=== PATIENT | male | born 1995 | race Caucasian/White ===

== ENCOUNTER 2025-08-23 20:44 | Inpatient (IN) ==
[2025-08-23] MEDS: LORazepam 1 MG/1 ML SYR ED Inj Use IV STA ×2 (21:30→21:41)
[2025-08-23 22:04] LABS: Acetaminophen < 3 ug/ml (10-30); Salicylate < 3.0 mg/dl (3.0-30)
[2025-08-23 22:05] LABS: Albumin Level 5.1 gm/dl (3.4-5.0); Anion Gap 27.0 (3-11); Bilirubin,Total 1.1 mg/dl (0.2-1.0); Calcium 10.5 mg/dl (8.6-10.3); Carbon Dioxide 17.0 mmol/L (21-32); Chloride 94.0 mmol/L (98-107); Potassium 3.5 mmol/L (3.5-5.1); Sodium 138.0 mmol/L (136-145)
[2025-08-23 22:11] LABS: Alanine Aminotransferase 54.0 U/L (7-52); Alkaline Phosphatase 76.0 U/L (34-104); Blood Urea Nitrogen 5.0 mg/dl (6-23); Creatinine Clr Calc Pharmacy 143.1 ml/min; Glucose 89.0 mg/dl (70-99(Fasting)); Total Protein 8.2 gm/dl (6.0-8.3)
[2025-08-23 22:25] LABS: Hematocrit (blood only) 46.0 % (42.0-52.0); Hemoglobin 16.4 g/dL (14.0-18.0); Immature Granulocytes # (auto) 0.02 K/uL (0.01-0.20); Immature Granulocytes % (auto) 0.4 %; Mean Corpuscular Hemoglobin 33.1 pg (25.0-34.0); Mean Corpuscular Volume 92.7 fL (80.0-100.0); Platelet Count 109 K/uL (130-400); RDW Standard Deviation 41.6 fL (36.4-46.3); Red Blood Count 4.96 M/uL (4.70-6.10); White Blood Count 4.73 K/ul (4.8-10.8)
--- NOTE | 2025-08-23 22:43 | CT Scan Report ---
Exam(s): CT HEAD Without Contrast EXAM: CT Head Without Intravenous Contrast CLINICAL HISTORY: Reason for exam: trauma. OTHER: Other Notes: Patient brought to ED via ems for a gorund level fall while intoxicated. Patient states he remembers the fall and did not loose conciousness but is unable to give a clear story of where the fall happened or story. TECHNIQUE: Axial computed tomography images of the head/brain without intravenous contrast. CTDI is 38.55 mGy and DLP is 1307.22 mGy-cm. Automated exposure control was utilized for the study. A dose lowering technique was utilized adhering to the principles of ALARA. COMPARISON: No relevant prior studies available. FINDINGS: Brain: Age-related parenchymal volume loss. Scattered white matter hypodensities, most likely mild chronic small vessel ischemic change. Tilley-white matter differentiation maintained. No parenchymal edema. No acute intracranial hemorrhage or abnormal extra-axial collection. No mass effect of midline shift. Ventricles: No hydrocephalus. Bones/joints: No acute fracture. Soft tissues: Lateral right frontal scalp swelling. Vasculature: Intracranial atherosclerosis. Sinuses: Unremarkable as visualized. Mastoid air cells: No significant mastoid effusion. IMPRESSION: 1. Lateral right frontal scalp swelling. 2. No acute intracranial process. Electronically signed by: Roni Holliday M.D. 08/23/25 22:42 PM
--- NOTE | 2025-08-23 22:45 | CT Scan Report ---
Exam(s): CT FACIAL Without Contrast EXAM: CT Maxillofacial Without Intravenous Contrast CLINICAL HISTORY: Reason for exam: trauma. OTHER: Other Notes: Patient brought to ED via ems for a gorund level fall while intoxicated. Patient states he remembers the fall and did not loose conciousness but is unable to give a clear story of where the fall happened or story. TECHNIQUE: Axial computed tomography images of the face without intravenous contrast. CTDI is 38.55 mGy and DLP is 1307.22 mGy-cm. Automated exposure control was utilized for the study. A dose lowering technique was utilized adhering to the principles of ALARA. COMPARISON: No relevant prior studies available. FINDINGS: Bones/joints: Acute nondisplaced fracture right frontal process of the maxilla (series 7, image 287). No nasal bone, orbital wall, zygomatic arch, pterygoid plate, or mandible fracture. Temporomandibular joints are normally aligned. Soft tissues: Right-sided nasal soft tissue swelling, right supraorbital soft tissue swelling, and right lateral frontal scalp swelling. Orbits: Ocular globes are intact. No retrobulbar abnormalities. Sinuses: No significant sinus disease. IMPRESSION: 1. Acute nondisplaced fracture right frontal process of the maxilla (series 7, image 287). 2. Right-sided nasal soft tissue swelling, right supraorbital soft tissue swelling, and right lateral frontal scalp swelling. Electronically signed by: Roni Holliday M.D. 08/23/25 22:44 PM
--- NOTE | 2025-08-23 22:46 | CT Scan Report ---
Exam(s): CT C SPINE EXAM: CT Cervical Spine Without Intravenous Contrast CLINICAL HISTORY: Reason for exam: trauma. OTHER: Other Notes: Patient brought to ED via ems for a gorund level fall while intoxicated. Patient states he remembers the fall and did not loose conciousness but is unable to give a clear story of where the fall happened or story. TECHNIQUE: Axial computed tomography images of the cervical spine without intravenous contrast. CTDI is 38.55 mGy and DLP is 1307.22 mGy-cm. Automated exposure control was utilized for the study. A dose lowering technique was utilized adhering to the principles of ALARA. COMPARISON: No relevant prior studies available. FINDINGS: Vertebrae: Straightening of the cervical spine. No acute fracture or subluxation. Discs/spinal canal/neural foramina: Unremarkable. No significant spinal canal stenosis. Soft tissues: Unremarkable. IMPRESSION: Straightening of the cervical spine. No acute fracture or subluxation. Electronically signed by: Roni Holliday M.D. 08/23/25 22:45 PM
[2025-08-23 22:54] LABS: Lipase 49.0 U/L (11-82)
[2025-08-23] MEDS: STAT IV/IM STA (22:56)
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
[2025-08-23] MEDS ORDERED: LORazepam Inj 1 MG in SYRINGE 0.5 ML IV PRN (23:14)
[2025-08-23 23:18] LABS: Thyroid Stimulating Hormone 5.123 uIu/ml (0.300-4.500)
[2025-08-23] MEDS: LIDOCAINE 2%/EPINEPHRINE 1:100,000 20ML INFIL ONE (23:28)
--- NOTE | 2025-08-23 23:31 | Emergency Department Note ---
History of Present Illness General Chief complaint: Alcohol Intoxication Stated complaint: INJURY ALERT, ALCOHOL INTOX Time Seen by Provider: 08/23/25 21:08 History of Present Illness Provider complaint: Fall head injury Onset (ago): hour(s) 2 29-year-old alcoholic male presents emergency department for fall. Reportedly the patient was getting out of the shower after drinking alcohol today and fell and hit his head. Reportedly there was loss of consciousness. Patient states he drank 5-10 beers today whereas he usually drinks 20 beers a day. Home Medications Medication Instructions Recorded Confirmed Type multivitamin 1 tab PO DAILY 08/23/25 08/23/25 History riboflavin (vitamin B2) 100 mg 100 mg PO DAILY 08/23/25 08/23/25 History tablet (Vitamin B-2) Allergies Allergy/AdvReac Type Severity Reaction Status Date / Time No Known Allergies Allergy Unknown Verified 08/23/25 23:45 Past Med/Surg History Problem List (Updated 08/23/25 @ 23:46 by Adrián Pena MD) Depression (Acute) Face lacerations (Acute) CHI (closed head injury) (Acute) Alcohol withdrawal syndrome (Acute) Alcohol withdrawal seizure (Acute) No significant past surgical history Alcoholism (Acute) No significant medical problems Alcoholic intoxication (Acute) Social History (Updated 08/23/25 @ 23:31 by Adrián Pena MD) Smoking Status: Current every day smoker Tobacco Type: Cigarettes Hx Alcohol Use: Yes Alcohol type: beer Alcohol Intake Frequency Comment: Daily, 20 beers daily Hx Substance Use: Yes (Pt abused Xanax) Preferred Language: Ukrainian Feels Safe at Home: Yes Physical Exam Vital Signs Vital Signs - 24 hr 08/23/25 21:01 08/23/25 21:01 08/23/25 21:01 Temperature 36.7 C 36.7 C Temperature Source Oral Oral Pulse Rate 97 H Pulse Rate [Right Finger] 89 Pulse Rhythm Regular Pulse Rhythm [Right Finger] Regular Pulse Strength Normal Pulse Strength [Right Finger] Normal Respiratory Rate 18 17 Respiratory Effort / Characteristics Non-Labored Spontaneous Non-Labored Spontaneous Respiratory Depth Normal Normal Respiratory Pattern Regular Blood Pressure 143/89 H Blood Pressure [Right Arm] 143/89 H Blood Pressure Mean 107 Blood Pressure Mean [Right Arm] 107 Blood Pressure Position Lying Blood Pressure Position [Right Arm] Lying Pulse Oximetry 96 94 Oxygen Delivery Method Room Air Room Air Room Air Sepsis Recent Fever Within 48 Hours No Sepsis New/Unexplained Change in Mental Status N/A Sepsis Action Taken by Nursing No Action Required 08/23/25 21:25 08/23/25 21:25 08/23/25 21:30 Temperature Temperature Source Pulse Rate 92 H 100 H Pulse Rate [Right Finger] 88 Pulse Rhythm Regular Pulse Rhythm [Right Finger] Regular Pulse Strength Pulse Strength [Right Finger] Normal Respiratory Rate 17 17 Respiratory Effort / Characteristics Non-Labored Spontaneous Respiratory Depth Normal Respiratory Pattern Regular Blood Pressure Blood Pressure [Right Arm] 132/89 Blood Pressure Mean Blood Pressure Mean [Right Arm] 103 Blood Pressure Position Blood Pressure Position [Right Arm] Lying Pulse Oximetry 95 98 Oxygen Delivery Method Room Air Room Air Sepsis Recent Fever Within 48 Hours Sepsis New/Unexplained Change in Mental Status Sepsis Action Taken by Nursing 08/23/25 22:04 08/23/25 23:00 08/23/25 23:13 Temperature Temperature Source Pulse Rate 95 H Pulse Rate [Right Finger] 91 H Pulse Rhythm Pulse Rhythm [Right Finger] Regular Regular Pulse Strength Pulse Strength [Right Finger] Normal Normal Respiratory Rate 21 19 Respiratory Effort / Characteristics Non-Labored Spontaneous Respiratory Depth Normal Respiratory Pattern Regular Blood Pressure 119/67 Blood Pressure [Right Arm] 128/88 Blood Pressure Mean Blood Pressure Mean [Right Arm] 101 Blood Pressure Position Blood Pressure Position [Right Arm] Lying Pulse Oximetry 92 Oxygen Delivery Method Room Air Sepsis Recent Fever Within 48 Hours Sepsis New/Unexplained Change in Mental Status Sepsis Action Taken by Nursing Physical Exam GENERAL: Patient is very tremulous. HENT: Exam performed. - Head: 2 cm laceration under the right eyebrow. - Right Ear: External ear normal. No mastoid erythema - Left Ear: External ear normal. No mastoid erythema - Mouth/Throat: The oropharynx is clear and moist. No trismus in the jaw. No dental abscesses or uvula swelling. No oropharyngeal exudate or tonsillar abscesses. EYES: Conjunctivae and EOM are normal. Pupils are equal, round, and reactive to light. Right eye exhibits no discharge. Left eye exhibits no discharge. No scleral icterus. NECK: Normal range of motion. Neck supple. No JVD present. No spinous process tenderness present. CV: Normal rate, regular rhythm, normal heart sounds and intact distal pulses. There is no peripheral edema. Palpable radial pulses bue. PULM/CHEST: Effort normal and breath sounds normal. No respiratory distress. No stridor. He has no wheezes. He has no rales. ABD: The abdomen is soft. There is no tenderness. There is no rebound, no guarding. MUSC/SKEL: Normal range of motion. There is no peripheral edema, tenderness or deformity. NEURO: Motor and sensation grossly intact. Procedures Laceration Laceration 1: Site: face Size (cm): 2 Description: linear Local Anesthetic: lidocaine 1% and with epi Amount of anesthesia used (mL): 4 Pre-repair: wound explored and irrigated extensively Skin layer closed with: vicryl Size (cm): 6-0 Number of sutures: 3 Technique: simple, interrupted Course Course 2108: The patient was evaluated in room B2. A complete history and physical exam was performed Cardiac monitoring: An order was placed for continuous cardiac monitoring. The monitor shows a rate of 90 with sinus rhythm interpreted by me Patient very tremulous. Patient will be given Ativan 1 mg. 2140: Called to bedside by nursing as patient was having seizure. Patient with tonic-clonic jerking and foaming at the mouth. Patient bit his tongue. Ativan 2 mg IV ordered for the patient. Patient will be started on phenobarb protocol for alcohol withdrawal. 2340: Vital signs stable status post being started on the phenobarbital protocol. Labs are significant for an AST of 80 and ALT of 54. Alcohol is only 21. Imaging shows nondisplaced fracture of the right frontal process of the maxilla. Otherwise no traumatic injuries. Patient's laceration was repaired. [facility]. Administered Medications Discontinued Medications Phenobarbital Sodium 325 mg/ (Sodium Chloride) 52.5 mls @ 315 mls/hr IV ONE ONE Stop: 08/23/25 22:02 Last Infusion: 08/23/25 22:16 Dose: Infused Documented By: Admin: 08/23/25 22:04 Dose: 315 mls/hr Documented By: BRUNO Lorazepam (Lorazepam 1 Mg/1 Ml Syr Ed Inj Use) 1 mg IV ONE STA Stop: 08/23/25 21:25 Last Admin: 08/23/25 21:30 Dose: 1 mg Documented By: BRUNO Lorazepam (Lorazepam 1 Mg/1 Ml Syr Ed Inj Use) 2 mg IV ONE STA Stop: 08/23/25 21:41 Last Admin: 08/23/25 21:41 Dose: 2 mg Documented By: BRUNO Miscellaneous (Stat Iv/Im) 1 each N/A NOW STA Stop: 08/23/25 21:47 Last Admin: 08/23/25 22:56 Dose: Not Given Documented By: BRUNO Critical Care Time Critical Care Time: Yes Total Critical Care Time: 42 I have personally spent greater than 42 minutes of critical care time in the direct management of this patient. This includes bedside care, interpretation of diagnostic studies, and testing, discussion with consultants, patient, and family members, and other required patient management activities. This 42 minutes is in excess of all separately billable procedures. Medical Decision Making Laboratory Data Attestation: I reviewed the patient's lab results. 08/23/25 20:53 08/23/25 20:53 Lab Results 08/23/25 08/23/25 Range/Units 20:53 21:34 WBC 4.73 L (4.8-10.8) K/ul RBC 4.96 (4.70-6.10) M/uL Hgb 16.4 (14.0-18.0) g/dL POC Hgb 15.0 (14.0-18.0) g/dl Hct 46.0 (42.0-52.0) % POC Hct 44 (42-52) % MCV 92.7 (80.0-100.0) fL MCH 33.1 (25.0-34.0) pg MCHC 35.7 (32.0-36.0) g/dL RDW Std Deviation 41.6 (36.4-46.3) fL RDW Coeff of Melida 12.1 (11.5-14.5) % Plt Count 109 L (130-400) K/uL MPV 10.1 (9.4-12.4) fL Immature Gran % (Auto) 0.4 % Neut % (Auto) 46.6 % Lymph % (Auto) 26.2 % Sully % (Auto) 22.4 % Eos % (Auto) 2.1 % Baso % (Auto) 2.3 % Neut # (Auto) 2.20 (1.40-6.50) K/uL Lymph # (Auto) 1.24 (1.20-3.40) K/uL Sully # (Auto) 1.06 H (0.11-0.59) K/uL Eos # (Auto) 0.10 (0.00-0.50) K/uL Baso # (Auto) 0.11 (0.00-0.20) K/uL Immature Gran # (Auto) 0.02 (0.01-0.20) K/uL POC Sodium 136 (135-144) mmol/L Sodium 138 (136-145) mmol/L POC Potassium 3.9 (3.3-5.0) mmol/L Potassium 3.5 (3.5-5.1) mmol/L POC Chloride 97 L (101-112) mmol/L Chloride 94 L (98-107) mmol/L Carbon Dioxide 17 L (21-32) mmol/L POC Total CO2 22 L (24-31) mmol/L Anion Gap 27 H (3-11) POC Anion Gap 22.0 (16-25) mmol/L POC BUN < 3 L (7-18) mg/dl BUN 5 L (6-23) mg/dl Creatinine 0.75 (0.6-1.4) mg/dl POC Creatinine 0.8 (0.6-1.3) mg/dl Est Cr Clr Drug Dosing 143.1 ml/min eGFR 126.85 BUN/Creatinine Ratio 6.7 L (10-20) Glucose 89 (70-99(Fasting)) mg/dl POC Glucose (other) 91 (70-99) mg/dl Calcium 10.5 H (8.6-10.3) mg/dl POC Ioniz Calcium Angie 1.12 (1.12-1.32) mmol/l Total Bilirubin 1.1 H (0.2-1.0) mg/dl Direct Bilirubin 0.2 (0-0.2) mg/dl AST 80 H (13-39) U/L ALT 54 H (7-52) U/L Alkaline Phosphatase 76 (34-104) U/L Total Protein 8.2 (6.0-8.3) gm/dl Albumin 5.1 H (3.4-5.0) gm/dl Lipase 49 (11-82) U/L TSH 5.123 H (0.300-4.500) uIu/ml Salicylates < 3.0 L (3.0-30) mg/dl Acetaminophen < 3 L (10-30) ug/ml Ethyl Alcohol mg/dL 21.2 H (<10.0) mg/dl Imaging Data Radiologist's Impression: Cervical Spine CT 08/23/25 21:09 Exam(s): CT C SPINE EXAM: CT Cervical Spine Without Intravenous Contrast CLINICAL HISTORY: Reason for exam: trauma. OTHER: Other Notes: Patient brought to ED via ems for a gorund level fall while intoxicated. Patient states he remembers the fall and did not loose conciousness but is unable to give a clear story of where the fall happened or story. TECHNIQUE: Axial computed tomography images of the cervical spine without intravenous contrast. CTDI is 38.55 mGy and DLP is 1307.22 mGy-cm. Automated exposure control was utilized for the study. A dose lowering technique was utilized adhering to the principles of ALARA. COMPARISON: No relevant prior studies available. FINDINGS: Vertebrae: Straightening of the cervical spine. No acute fracture or subluxation. Discs/spinal canal/neural foramina: Unremarkable. No significant spinal canal stenosis. Soft tissues: Unremarkable. IMPRESSION: Straightening of the cervical spine. No acute fracture or subluxation. Electronically signed by: Roni Holliday M.D. 08/23/25 22:[address] 08/23/25 21:09 Exam(s): CT FACIAL Without Contrast EXAM: CT Maxillofacial Without Intravenous Contrast CLINICAL HISTORY: Reason for exam: trauma. OTHER: Other Notes: Patient brought to ED via ems for a gorund level fall while intoxicated. Patient states he remembers the fall and did not loose conciousness but is unable to give a clear story of where the fall happened or story. TECHNIQUE: Axial computed tomography images of the face without intravenous contrast. CTDI is 38.55 mGy and DLP is 1307.22 mGy-cm. Automated exposure control was utilized for the study. A dose lowering technique was utilized adhering to the principles of ALARA. COMPARISON: No relevant prior studies available. FINDINGS: Bones/joints: Acute nondisplaced fracture right frontal process of the maxilla (series 7, image 287). No nasal bone, orbital wall, zygomatic arch, pterygoid plate, or mandible fracture. Temporomandibular joints are normally aligned. Soft tissues: Right-sided nasal soft tissue swelling, right supraorbital soft tissue swelling, and right lateral frontal scalp swelling. Orbits: Ocular globes are intact. No retrobulbar abnormalities. Sinuses: No significant sinus disease. IMPRESSION: 1. Acute nondisplaced fracture right frontal process of the maxilla (series 7, image 287). 2. Right-sided nasal soft tissue swelling, right supraorbital soft tissue swelling, and right lateral frontal scalp swelling. Electronically signed by: Roni Holliday M.D. 08/23/25 22:[address] 08/23/25 21:09 Exam(s): CT HEAD Without Contrast EXAM: CT Head Without Intravenous Contrast CLINICAL HISTORY: Reason for exam: trauma. OTHER: Other Notes: Patient brought to ED via ems for a gorund level fall while intoxicated. Patient states he remembers the fall and did not loose conciousness but is unable to give a clear story of where the fall happened or story. TECHNIQUE: Axial computed tomography images of the head/brain without intravenous contrast. CTDI is 38.55 mGy and DLP is 1307.22 mGy-cm. Automated exposure control was utilized for the study. A dose lowering technique was utilized adhering to the principles of ALARA. COMPARISON: No relevant prior studies available. FINDINGS: Brain: Age-related parenchymal volume loss. Scattered white matter hypodensities, most likely mild chronic small vessel ischemic change. Tilley-white matter differentiation maintained. No parenchymal edema. No acute intracranial hemorrhage or abnormal extra-axial collection. No mass effect of midline shift. Ventricles: No hydrocephalus. Bones/joints: No acute fracture. Soft tissues: Lateral right frontal scalp swelling. Vasculature: Intracranial atherosclerosis. Sinuses: Unremarkable as visualized. Mastoid air cells: No significant mastoid effusion. IMPRESSION: 1. Lateral right frontal scalp swelling. 2. No acute intracranial process. Electronically signed by: Roni Holliday M.D. 08/23/25 22:42 PM [facility] Narrative 2108: The patient was evaluated in room B2. A complete history and physical exam was performed Cardiac monitoring: An order was placed for continuous cardiac monitoring. The monitor shows a rate of 90 with sinus rhythm interpreted by me Patient very tremulous. Patient will be given Ativan 1 mg. 0: Called to bedside by nursing as patient was having seizure. Patient with tonic-clonic jerking and foaming at the mouth. Patient bit his tongue. Ativan 2 mg IV ordered for the patient. Patient will be started on phenobarb protocol for alcohol withdrawal. 2340: Vital signs stable status post being started on the phenobarbital protocol. Labs are significant for an AST of 80 and ALT of 54. Alcohol is only 21. Imaging shows nondisplaced fracture of the right frontal process of the maxilla. Otherwise no traumatic injuries. Patient's laceration was repaired. [facility]. Impression & Plan Alcohol withdrawal seizure, Alcoholism, Alcohol withdrawal syndrome, CHI (closed head injury), Face lacerations, Depression Discharge Plan Visit Data Chief Complaint: Alcohol Intoxication Stated Complaint: INJURY ALERT, ALCOHOL INTOX ED Provider: Adrián Pena Discharge Problem: Alcohol withdrawal seizure, Alcoholism, Alcohol withdrawal syndrome, CHI (closed head injury), Face lacerations, Depression Patient Disposition: Admitted As Inpatient Condition: Serious Forms Stand Alone Forms: [employer] Prescriptions Prescriptions: No Action multivitamin Tablet 1 tab PO DAILY riboflavin (vitamin B2) [Vitamin B-2] 100 mg Tablet 100 mg PO DAILY Referrals Referrals: Jose Wan MD [Primary Care Provider] - Discharge Problem: CHI (closed head injury) Qualifiers: Encounter type: initial encounter Qualified Code(s): S09.90XA - Unspecified injury of head, initial encounter
[2025-08-23] MEDS: NSS + 20MEQ KCL 20 MEQ/1,000 ML BAG IV STA (23:48)
[2025-08-23] MEDS: THIAMINE HCL 100 MG in SYRINGE 9 ML IV STA (23:48)
[2025-08-24] LABS: Magnesium 1.9 mg/dl (1.7-2.4)
[2025-08-24 00:14] LABS: INR 1.0 (0.9-1.1); Prothrombin Time 10.4 Seconds (9.0-12.0)
[2025-08-24] MEDS: LORazepam 1 MG/1 ML SYR ED Inj Use IV STA (00:16)
[2025-08-24] MEDS ORDERED: POTASSIUM PHOS 3 MMOL/1 ML INFUSION IV STA (00:21)
[2025-08-24] MEDS ORDERED: MELATONIN 3 MG TAB PO PRN (00:24)
[2025-08-24 00:36] LABS: T4 Free Thyroxine 0.68 ng/dl (0.61-1.60)
[2025-08-24] MEDS: POTASSIUM PHOSPHATE 15 MMOL in SODIUM CHLORIDE 0.9% 250 ML IV STA (01:38)
[2025-08-24 06:54] LABS: Alanine Aminotransferase 36.0 U/L (7-52); Albumin Globulin Ratio 1.7 (0.9-2); Albumin Level 4.1 gm/dl (3.4-5.0); Alkaline Phosphatase 48.0 U/L (34-104); Anion Gap 12.0 (3-11); Bilirubin,Total 1.0 mg/dl (0.2-1.0); Blood Urea Nitrogen 7.0 mg/dl (6-23); Calcium 9.0 mg/dl (8.6-10.3); Carbon Dioxide 23.0 mmol/L (21-32); Chloride 100.0 mmol/L (98-107); Creatinine Clr Calc Pharmacy 167.3 ml/min; Globulin 2.4 gm/dl (2.5-4.0); Glucose 74.0 mg/dl (70-99(Fasting)); Potassium 4.2 mmol/L (3.5-5.1); Sodium 135.0 mmol/L (136-145); Total Protein 6.5 gm/dl (6.0-8.3)
[2025-08-24 07:04] LABS: Partial Thromboplastin Time 26 Seconds (21-31)
[2025-08-24 07:17] LABS: Hematocrit (blood only) 37.4 % (42.0-52.0); Hemoglobin 13.9 g/dL (14.0-18.0); Mean Corpuscular Hemoglobin 33.9 pg (25.0-34.0); Mean Corpuscular Volume 91.2 fL (80.0-100.0); Platelet Count 78 K/uL (130-400); RDW Standard Deviation 39.8 fL (36.4-46.3); Red Blood Count 4.10 M/uL (4.70-6.10); White Blood Count 4.48 K/ul (4.8-10.8)
[2025-08-24 07:35] LABS: Immature Granulocytes # (auto) 0.02 K/uL (0.01-0.20); Immature Granulocytes % (auto) 0.4 %
[2025-08-24] MEDS: FOLIC ACID 1 MG TAB PO SCH (08:46)
[2025-08-24] MEDS: MULTIVITAMIN TAB PO SCH (08:46)
[2025-08-24] MEDS: THIAMINE HCL 100 MG TAB PO SCH (08:47)
[2025-08-24] MEDS: OPTIRAY 320 125ml IV ONE (09:10)
--- NOTE | 2025-08-24 09:34 | CT Scan Report ---
CT ANGIOGRAM OF THE CHEST CLINICAL HISTORY: Chest pain. Evaluate for pulmonary embolus. COMPARISON STUDY: Chest radiograph January 23, 2019. TECHNIQUE: Following the IV administration of 112 cc of Optiray 320, CT angiogram of the chest was pe rformed from the upper abdomen to the thoracic inlet utilizing the pulmonary embolus protocol. Images are reviewed in the axial, sagittal, and coronal planes. 3-D MIPS images are created and assessed. I V contrast was administered without complication. A dose lowering technique was utilized adhering to the principles of ALARA. CT DOSE: 597.6 mGy.cm FINDINGS: No pulmonary emboli are identified. There is no thoracic aortic dissection. Size of the hea rt is normal. There is no pericardial effusion. No thoracic lymphadenopathy is present. There is no p neumothorax or pleural effusion. Lungs are clear. No consolidation is present. There are no pulmonary nodules. There are several healing anterior bilateral rib fractures. Visualized portions of the uppe r abdomen demonstrate severe hepatic steatosis. IMPRESSION: 1. No pulmonary emboli identified. 2. No acute intrathoracic findings. 3. Severe hepatic steatosis. ACT 112: Negative or not required by law. Electronically signed by: Maximilian Hampton M.D. 08/24/2025 9:33 AM
--- NOTE | 2025-08-24 10:17 | Hospitalist Progress Note ---
<Statement entered by Marcellus Monae, DO - 08/24/25 13:02> I have seen and examined the patient and have discussed the case with the advance practice provider. I have reviewed the advanced practitioner's documentation, and I agree with, and take responsibility for that plan of care. Continue phenobarbital withdrawal protocol. Add as needed phenobarbital for increased score. Outpatient follow-up with [facility] for orbital fracture Resources for alcohol dependence counseling outpatient. 15 minutes coordinating, documenting, and providing care for this patient excluding time spent by another provider/QHP. Date of Service August 24, 2025 Assessment & Plan (1) Alcohol withdrawal seizure: (2) Depression: (3) Face lacerations: (4) Fracture of nasal bones: (5) CHI (closed head injury): (6) Alcohol withdrawal syndrome: Plan This is a 29yo M with PMH of alcohol use disorder, depression who presents in setting of fall, alcohol withdrawal seizure. Alcohol withdrawal seizure Alcohol use disorder Alcoholic hepatitis Phenobarbital withdrawal protocol ordered, monitoring in PCU Added PRN Phenobarbital this AM given AWSS score Remains hemodynamically stable, VSS Severe hepatic steatosis noted incidentally on CT PE ordered on admission - counseled on importance of alcohol cessation, not interested in rehab at this time AST 60 (downtrending from 80), tbili normal, plt 78 Recommend outpatient GI follow up for alcohol-associated steatosis Continue protocol, vitamin supplementation as ordered Fall R nasal bone fracture Face CT with acute nondisplaced fracture right frontal process of the maxilla, R supraorbital soft tissue swelling and right lateral frontal scalp swelling Discussed with Dr. Samuel, who reviewed CT imaging - minimal fracture of nasal butch umair that should heal non-surgically. Recommend outpatient follow-up as needed Pain control Ongoing tobacco abuse Cessation recommended, nicotine patch PRN DVT Ppx: SCDs Code status: FULL PCP: [facility] Dispo: Admitted to PCU Patient seen in collaboration with Dr. Monae. Please see addendum. I spent a total of 60 minutes coordinating, documenting, and providing care for this patient excluding time spent in the performance of separately billed services or time spent by another provider/QHP. Patient's father Arnav updated at bedside today. (Contact info [phone]) Admission and Anticipated Discharge Date Admission Date: August 24, 2025 Subjective Seen and examined this morning, father at bedside. Patient alert with VSS in range. Slept overnight, denies pain. No F/C, lightheadedness, CP, SOB, N/V, abd pain, dysuria. Ongoing issues with alcoholism - denies interest in inpatient or outpatient rehab at this time. Review of Systems Review of Systems: At least ten systems reviewed and negative except as noted in the HPI. Physical Exam Physical Exam: Gen: WD/WN, NAD, resting in bed, A&Ox3, mild BUE tremor, sweating noted, cooperative and answering questions appropriately HEENT: Normocephalic, + R periorbital edema and ecchymosis Lung: Clear to Auscultation bilaterally Heart: Regular rate, regular rhythm Abdomen: Soft, NT, ND +BS x 4 Extremities: no edema Skin: Warm, no rash Results & Data Results & Data Vital Signs (Past 12 Hours) Vital Signs Temp Pulse Pulse Resp BP BP Pulse Ox 08/24/25 08:16 36.8 C 86 18 125/71 94 08/24/25 05:00 83 20 96 08/24/25 04:19 91 H 20 125/85 08/24/25 04:00 91 H 20 125/85 96 08/24/25 03:00 90 24 117/80 96 08/24/25 02:00 93 H 20 96 08/24/25 01:07 99 H 08/24/25 01:02 36.9 C 98 H 20 137/88 97 08/24/25 00:29 08/24/25 00:18 95 H 21 140/99 99 08/24/25 00:16 92 H 24 137/82 08/23/25 23:00 91 H 19 128/88 92 O2 Del Method 08/24/25 08:16 Room Air 08/24/25 05:00 Room Air 08/24/25 04:19 08/24/25 04:00 Room Air 08/24/25 03:00 Room Air 08/24/25 02:00 Room Air 08/24/25 01:07 08/24/25 01:02 Room Air 08/24/25 00:29 Room Air 08/24/25 00:18 Room Air 08/24/25 00:16 08/23/25 23:00 Room Air Laboratory Results Short CBC 08/23/25 08/24/25 Range/Units 20:53 06:15 WBC 4.73 L 4.48 L (4.8-10.8) K/ul Hgb 16.4 13.9 L (14.0-18.0) g/dL Hct 46.0 37.4 L (42.0-52.0) % Plt Count 109 L 78 L (130-400) K/uL BMP 08/23/25 08/24/25 20:53 06:15 Sodium 138 135 L Potassium 3.5 4.2 Chloride 94 L 100 Carbon Dioxide 17 L 23 BUN 5 L 7 Creatinine 0.75 0.68 Glucose 89 74 Calcium 10.5 H 9.0 Liver Function 08/23/25 08/24/25 Range/Units 20:53 06:15 Total Bilirubin 1.1 H 1.0 (0.2-1.0) mg/dl Direct Bilirubin 0.2 (0-0.2) mg/dl AST 80 H 60 H (13-39) U/L ALT 54 H 36 (7-52) U/L Alkaline Phosphatase 76 48 (34-104) U/L Albumin 5.1 H 4.1 (3.4-5.0) gm/dl Diagnostic Findings Cervical Spine CT 08/23/25 21:09 Exam(s): CT C SPINE EXAM: CT Cervical Spine Without Intravenous Contrast CLINICAL HISTORY: Reason for exam: trauma. OTHER: Other Notes: Patient brought to ED via ems for a gorund level fall while intoxicated. Patient states he remembers the fall and did not loose conciousness but is unable to give a clear story of where the fall happened or story. TECHNIQUE: Axial computed tomography images of the cervical spine without intravenous contrast. CTDI is 38.55 mGy and DLP is 1307.22 mGy-cm. Automated exposure control was utilized for the study. A dose lowering technique was utilized adhering to the principles of ALARA. COMPARISON: No relevant prior studies available. FINDINGS: Vertebrae: Straightening of the cervical spine. No acute fracture or subluxation. Discs/spinal canal/neural foramina: Unremarkable. No significant spinal canal stenosis. Soft tissues: Unremarkable. IMPRESSION: Straightening of the cervical spine. No acute fracture or subluxation. Electronically signed by: Roni Holliday M.D. 08/23/25 22:[address] 08/23/25 21:09 Exam(s): CT FACIAL Without Contrast EXAM: CT Maxillofacial Without Intravenous Contrast CLINICAL HISTORY: Reason for exam: trauma. OTHER: Other Notes: Patient brought to ED via ems for a gorund level fall while intoxicated. Patient states he remembers the fall and did not loose conciousness but is unable to give a clear story of where the fall happened or story. TECHNIQUE: Axial computed tomography images of the face without intravenous contrast. CTDI is 38.55 mGy and DLP is 1307.22 mGy-cm. Automated exposure control was utilized for the study. A dose lowering technique was utilized adhering to the principles of ALARA. COMPARISON: No relevant prior studies available. FINDINGS: Bones/joints: Acute nondisplaced fracture right frontal process of the maxilla (series 7, image 287). No nasal bone, orbital wall, zygomatic arch, pterygoid plate, or mandible fracture. Temporomandibular joints are normally aligned. Soft tissues: Right-sided nasal soft tissue swelling, right supraorbital soft tissue swelling, and right lateral frontal scalp swelling. Orbits: Ocular globes are intact. No retrobulbar abnormalities. Sinuses: No significant sinus disease. IMPRESSION: 1. Acute nondisplaced fracture right frontal process of the maxilla (series 7, image 287). 2. Right-sided nasal soft tissue swelling, right supraorbital soft tissue swelling, and right lateral frontal scalp swelling. Electronically signed by: Roni Holliday M.D. 08/23/25 22:[address] 08/23/25 21:09 Exam(s): CT HEAD Without Contrast EXAM: CT Head Without Intravenous Contrast CLINICAL HISTORY: Reason for exam: trauma. OTHER: Other Notes: Patient brought to ED via ems for a gorund level fall while intoxicated. Patient states he remembers the fall and did not loose conciousness but is unable to give a clear story of where the fall happened or story. TECHNIQUE: Axial computed tomography images of the head/brain without intravenous contrast. CTDI is 38.55 mGy and DLP is 1307.22 mGy-cm. Automated exposure control was utilized for the study. A dose lowering technique was utilized adhering to the principles of ALARA. COMPARISON: No relevant prior studies available. FINDINGS: Brain: Age-related parenchymal volume loss. Scattered white matter hypodensities, most likely mild chronic small vessel ischemic change. Tilley-white matter differentiation maintained. No parenchymal edema. No acute intracranial hemorrhage or abnormal extra-axial collection. No mass effect of midline shift. Ventricles: No hydrocephalus. Bones/joints: No acute fracture. Soft tissues: Lateral right frontal scalp swelling. Vasculature: Intracranial atherosclerosis. Sinuses: Unremarkable as visualized. Mastoid air cells: No significant mastoid effusion. IMPRESSION: 1. Lateral right frontal scalp swelling. 2. No acute intracranial process. Electronically signed by: Roni Holliday M.D. 08/23/25 22:42 PM Chest CTA 08/24/25 01:14 CT ANGIOGRAM OF THE CHEST CLINICAL HISTORY: Chest pain. Evaluate for pulmonary embolus. COMPARISON STUDY: Chest radiograph January 23, 2019. TECHNIQUE: Following the IV administration of 112 cc of Optiray 320, CT angiogr am of the chest was performed from the upper abdomen to the thoracic inlet utilizing the pulmonary embolus protocol. Images are reviewed in the axial, sagittal, and coronal planes. 3-D MIPS images are created and assessed. IV contrast was administered without complication. A dose lowering technique was utilized adhering to the principles of ALARA. CT DOSE: 597.6 mGy.cm FINDINGS: No pulmonary emboli are identified. There is no thoracic aortic dissection. Size of the heart is normal. There is no pericardial effusion. No thoracic lymphadenopathy is present. There is no pneumothorax or pleural effusion. Lungs are clear. No consolidation is present. There are no pulmonary nodules. There are several healing anterior bilateral rib fractures. Visualized portions of the upper abdomen demonstrate severe hepatic steatosis. IMPRESSION: 1. No pulmonary emboli identified. 2. No acute intrathoracic findings. 3. Severe hepatic steatosis. ACT 112: Negative or not required by law. Electronically signed by: Maximilian Hampton M.D. 08/24/2025 9:33 AM (5) CHI (closed head injury) Encounter type: initial encounter Qualified Code(s): S09.90XA - Unspecified injury of head, initial encounter
[2025-08-24 15:17] LABS: Appearance Urine Clear (Clear); Bacteria Urine Automated None Seen (None Seen); Cast Urine Automated 0-2 /lpf (0-2); Epithelial Cell Urine Auto 0-2 /hpf (0-2); Glucose Urine UA Negative (Negative); RBC Urine Automated 0-2 /hpf (0-2); WBC Urine Automated 0-5 /hpf (0-5)
[2025-08-24 19:18] LABS: Amphetamines+Metham, Urine Neg (Neg); MDMA (Ecstacy), Urine Neg (Neg); Marijuana, Urine Neg (Neg)
[2025-08-24] MEDS: NICOTINE 21 MG/24 HR TDSY TD SCH (20:53)
[2025-08-25 04:58] LABS: Hematocrit (blood only) 38.8 % (42.0-52.0); Hemoglobin 14.0 g/dL (14.0-18.0); Mean Corpuscular Hemoglobin 33.3 pg (25.0-34.0); Mean Corpuscular Volume 92.4 fL (80.0-100.0); Platelet Count 72 K/uL (130-400); RDW Standard Deviation 40.0 fL (36.4-46.3); Red Blood Count 4.20 M/uL (4.70-6.10); White Blood Count 3.38 K/ul (4.8-10.8)
[2025-08-25 05:14] LABS: Alanine Aminotransferase 32.0 U/L (7-52); Albumin Globulin Ratio 2.0 (0.9-2); Albumin Level 4.3 gm/dl (3.4-5.0); Alkaline Phosphatase 55.0 U/L (34-104); Anion Gap 7.0 (3-11); Bilirubin,Total 1.0 mg/dl (0.2-1.0); Blood Urea Nitrogen 8.0 mg/dl (6-23); Calcium 9.6 mg/dl (8.6-10.3); Carbon Dioxide 28.0 mmol/L (21-32); Chloride 99.0 mmol/L (98-107); Creatinine Clr Calc Pharmacy 164.9 ml/min; Globulin 2.2 gm/dl (2.5-4.0); Glucose 93.0 mg/dl (70-99(Fasting)); Potassium 4.1 mmol/L (3.5-5.1); Sodium 134.0 mmol/L (136-145); Total Protein 6.5 gm/dl (6.0-8.3)
--- NOTE | 2025-08-25 07:12 | Oral/Maxillofacial Consult ---
Date of Consultation August 25, 2025 History of Present Illness Attending Physician: Marcellus Monae, DO History of Present Illness I was consulted for follow up after he fell hitting nose The swelling and redness is subsiding and no issues with the shape of nose, airflow, sinus or the the significant other fractures of the sinus or orbital area I did an intra nasal evaluation, the septum looks good, no edema, excellent airflow, anatomy looks good, no redness or drainage. Patient feels the nose does not look any different. I reviewed the CT and there is an insignificant non displaced nasal fracture that will not require any treatment No pain on pressure, no dental or TMJ issues No sinus or congestion issues noted. There is slight redness, swelling, bruising which should resolve very well No neck issues I told his father that Teja will not require any treatment. I gave them a cord and suggested I see him for follow up from the recent facial/nasal injury next week in my office Return for follow up with Dr Samuel as needed. No surgical treatment needed at this time I will re evaluate if he comes for follow up Exam(s): CT FACIAL Without Contrast EXAM: CT Maxillofacial Without Intravenous Contrast CLINICAL HISTORY: Reason for exam: trauma. OTHER: Other Notes: Patient brought to ED via ems for a ground level fall while intoxicated. Patient states he remembers the fall and did not loose consciousness but is unable to give a clear story of where the fall happened or story. FINDINGS: Bones/joints: Acute nondisplaced fracture right frontal process of the maxilla (series 7, image 287). No nasal bone, orbital wall, zygomatic arch, pterygoid plate, or mandible fracture. Temporomandibular joints are normally aligned. Soft tissues: Right-sided nasal soft tissue swelling, right supraorbital soft tissue swelling, and right lateral frontal scalp swelling. Orbits: Ocular globes are intact. No retrobulbar abnormalities. Sinuses: No significant sinus disease. IMPRESSION: 1. Acute nondisplaced fracture right frontal process of the maxilla (series 7, image 287). 2. Right-sided nasal soft tissue swelling, right supraorbital soft tissue swelling, and right lateral frontal scalp swelling. Allergies Allergy/AdvReac Type Severity Reaction Status Date / Time No Known Allergies Allergy Unknown Verified 08/23/25 23:45 Home Medications Medication Instructions Recorded Confirmed Type multivitamin 1 tab PO DAILY 08/23/25 08/23/25 History riboflavin (vitamin B2) 100 mg 100 mg PO DAILY 08/23/25 08/23/25 History tablet (Vitamin B-2) Patient History Medical History (Updated 08/24/25 @ 11:37 by Jayna Bennett PA-C) Alcoholism Alcoholic intoxication Social History (Updated 08/23/25 @ 23:31 by Adrián Pena MD) Smoking Status: Current every day smoker Tobacco Type: Cigarettes Cigarettes Per Day: SARAH; Second Hand Exposure: No; Do You Dip or Chew Tobacco: No; Hx Alcohol Use: Yes Alcohol type: hard liquor Alcohol Intake Frequency Comment: Daily, 20 beers daily Hx Substance Use: Yes Substance Use Type Other:: Unable to obtain drug use information at this time Preferred Language: Surinamese Communication Ability: Effective Communication Ability Comment: temporary impairment d/t medical status Head Machine Feeder Required: No Beliefs That Will Affect Care: None Current Living Situation: Family Current Living Situation Comment: lives at home with mother Feels Safe at Home: Yes Assistive Devices: None Results & Data Vital Signs (Past 12 Hours) Vital Signs Temp Pulse Pulse Resp BP BP Pulse Ox 08/25/25 03:08 82 20 136/90 08/25/25 03:00 36.4 C L 82 20 136/90 95 08/24/25 23:35 80 08/24/25 23:00 36.3 C L 95 H 16 130/84 100 08/24/25 19:10 36.6 C 87 18 124/80 95 O2 Del Method 08/25/25 03:08 08/25/25 03:00 Room Air 08/24/25 23:35 08/24/25 23:00 Room Air 08/24/25 19:10 Room Air PG Care Time/CCT Total # of Minutes Spent Total Time Spent with Patient: Total time spent is greater than 50% in coordination of care (as documented) at patient's floor/unit and/or counseling patient: Coding Level of Care Code 53156 IN/OBS CONSULT LVL 2,35M
[2025-08-25] MEDS: ACETAMINOPHEN 500 MG TAB PO PRN (07:57)
[2025-08-25] MEDS ORDERED: NICOTINE POLACRILEX 2 MG GUM MT PRN (09:17)
--- NOTE | 2025-08-25 10:30 | Hospitalist Progress Note ---
<Statement entered by Marcellus Monae, - 08/25/25 14:18> I have seen and examined the patient and have discussed the case with the advance practice provider. I have reviewed the advanced practitioner's documentation, and I agree with, and take responsibility for that plan of care. Patient overall significantly improved. Needed only 1 dose of as needed phenobarbital. Spent time at the bedside with the patient and his father discussing how the to address his addiction moving forward. We discussed naltrexone and acamprosate. Patient was familiar with Vivitrol injection. He has acquaintance/friend who had used this successfully. Patient willing to start oral naltrexone tomorrow and then pursue Depo injections after discharge. I also stressed to him the importance of combining that treatment with counseling and support groups. Also reviewed with him how we were seeing already some impact on his organs from his alcohol use. At this point I do believe he will recover but in the future if he continues to drink alcohol he may have permanent organ damage. He seems committed to alcohol abstinence. Further care plans as outlined below I spent a total of 22 minutes coordinating, documenting, and providing care for this patient excluding time spent by another provider/QHP. Date of Service August 25, 2025 Assessment & Plan (1) Alcohol withdrawal seizure: (2) Depression: (3) Face lacerations: (4) Fracture of nasal bones: (5) CHI (closed head injury): (6) Alcohol withdrawal syndrome: Plan This is a 29yo M with PMH of alcohol use disorder, depression who presents in setting of fall, alcohol withdrawal seizure. Alcohol withdrawal seizure Alcohol use disorder Alcoholic hepatitis Phenobarbital withdrawal protocol ordered, remains hemodynamically stable while receiving PO phenobarbitol. Appropriate for transfer to med/surg Added PRN Phenobarbital - given once last evening AST unchanged in 60s (downtrending from 80), tbili normal, plt 70s Severe hepatic steatosis noted incidentally on CT PE ordered on admission - counseled on importance of alcohol cessation, sent referral for outpatient GI/hepatology f/u for alcohol-associated steatosis Significant time spent by myself and Dr. Mnoae regarding need for strict alcohol cessation - coordinated PCP follow up as well as initiation of naltrexone in the AM. Patient seems motivated Continue protocol, vitamin supplementation as ordered Fall R nasal bone fracture Face CT with acute nondisplaced fracture right frontal process of the maxilla, R supraorbital soft tissue swelling and right lateral frontal scalp swelling Discussed with Dr. Samuel, who reviewed CT imaging and saw patient last evening- minimal fracture of nasal bones that should heal non-surgically. Outpatient follow-up as needed Pain control Ongoing tobacco abuse Cessation recommended, nicotine patch, gum added today DVT Ppx: SCDs Code status: FULL PCP: [facility] Dispo: transferring to med/surg, plan for dc home tomorrow Patient seen in collaboration with Dr. Monae. Please see addendum. I spent a total of 50 minutes coordinating, documenting, and providing care for this patient excluding time spent in the performance of separately billed services or time spent by another provider/QHP. Patient's father Arnav updated at bedside today. ([phone]) Admission and Anticipated Discharge Date Admission Date: August 23, 2025 Subjective Seen and examined this morning, father at bedside. Patient alert with VSS in range. More alert today, generalized weakness and aching resolving. Did get one PRN PO dose of phenobarbital last evening. No F/C, lightheadedness, CP, SOB, N/V, abd pain, dysuria. Further discussion about alcoholism and follow up today. Review of Systems Review of Systems: At least ten systems reviewed and negative except as noted in the HPI. Physical Exam Physical Exam: Gen: WD/WN, NAD, resting in bed, A&Ox3, cooperative and answering questions appropriately, fine tremor noted bilateral hands HEENT: Normocephalic, + R periorbital edema and ecchymosis Lung: Clear to Auscultation bilaterally Heart: Regular rate, regular rhythm Abdomen: Soft, NT, ND +BS x 4 Extremities: no edema Skin: Warm, no rash Results & Data Results & Data Vital Signs (Past 12 Hours) Vital Signs Temp Pulse Pulse Resp BP BP BP 08/25/25 07:00 36.6 C 78 24 134/90 131/87 08/25/25 03:08 82 20 136/90 08/25/25 03:00 36.4 C L 82 20 136/90 08/24/25 23:35 80 08/24/25 23:00 36.3 C L 95 H 16 130/84 Pulse Ox O2 Del Method 08/25/25 07:00 98 Room Air 08/25/25 03:08 08/25/25 03:00 95 Room Air 08/24/25 23:35 08/24/25 23:00 100 Room Air Laboratory Results Short CBC 08/25/25 Range/Units 04:05 WBC 3.38 L (4.8-10.8) K/ul Hgb 14.0 (14.0-18.0) g/dL Hct 38.8 L (42.0-52.0) % Plt Count 72 L (130-400) K/uL BMP 08/25/25 04:05 Sodium 134 L Potassium 4.1 Chloride 99 Carbon Dioxide 28 BUN 8 Creatinine 0.69 Glucose 93 Calcium 9.6 Liver Function 08/25/25 Range/Units 04:05 Total Bilirubin 1.0 (0.2-1.0) mg/dl AST 63 H (13-39) U/L ALT 32 (7-52) U/L Alkaline Phosphatase 55 (34-104) U/L Albumin 4.3 (3.4-5.0) gm/dl Urine 08/24/25 Range/Units Unknown Urine Color Yellow Urine Appearance Clear (Clear) Urine pH 6.5 (4.5-7.5) Ur Specific [place] > 1.045 H (1.000-1.030) Urine Protein Trace H (Negative) Urine Glucose (UA) Negative (Negative) Diagnostic Findings Cervical Spine CT 08/23/25 21:09 Exam(s): CT C SPINE EXAM: CT Cervical Spine Without Intravenous Contrast CLINICAL HISTORY: Reason for exam: trauma. OTHER: Other Notes: Patient brought to ED via ems for a gorund level fall while intoxicated. Patient states he remembers the fall and did not loose conciousness but is unable to give a clear story of where the fall happened or story. TECHNIQUE: Axial computed tomography images of the cervical spine without intravenous contrast. CTDI is 38.55 mGy and DLP is 1307.22 mGy-cm. Automated exposure control was utilized for the study. A dose lowering technique was utilized adhering to the principles of ALARA. COMPARISON: No relevant prior studies available. FINDINGS: Vertebrae: Straightening of the cervical spine. No acute fracture or subluxation. Discs/spinal canal/neural foramina: Unremarkable. No significant spinal canal stenosis. Soft tissues: Unremarkable. IMPRESSION: Straightening of the cervical spine. No acute fracture or subluxation. Electronically signed by: Roni Holliday M.D. 08/23/25 22:[address] 08/23/25 21:09 Exam(s): CT FACIAL Without Contrast EXAM: CT Maxillofacial Without Intravenous Contrast CLINICAL HISTORY: Reason for exam: trauma. OTHER: Other Notes: Patient brought to ED via ems for a gorund level fall while intoxicated. Patient states he remembers the fall and did not loose conciousness but is unable to give a clear story of where the fall happened or story. TECHNIQUE: Axial computed tomography images of the face without intravenous contrast. CTDI is 38.55 mGy and DLP is 1307.22 mGy-cm. Automated exposure control was utilized for the study. A dose lowering technique was utilized adhering to the principles of ALARA. COMPARISON: No relevant prior studies available. FINDINGS: Bones/joints: Acute nondisplaced fracture right frontal process of the maxilla (series 7, image 287). No nasal bone, orbital wall, zygomatic arch, pterygoid plate, or mandible fracture. Temporomandibular joints are normally aligned. Soft tissues: Right-sided nasal soft tissue swelling, right supraorbital soft tissue swelling, and right lateral frontal scalp swelling. Orbits: Ocular globes are intact. No retrobulbar abnormalities. Sinuses: No significant sinus disease. IMPRESSION: 1. Acute nondisplaced fracture right frontal process of the maxilla (series 7, image 287). 2. Right-sided nasal soft tissue swelling, right supraorbital soft tissue swelling, and right lateral frontal scalp swelling. Electronically signed by: Roni Holliday M.D. 08/23/25 22:[address] 08/23/25 21:09 Exam(s): CT HEAD Without Contrast EXAM: CT Head Without Intravenous Contrast CLINICAL HISTORY: Reason for exam: trauma. OTHER: Other Notes: Patient brought to ED via ems for a gorund level fall while intoxicated. Patient states he remembers the fall and did not loose conciousness but is unable to give a clear story of where the fall happened or story. TECHNIQUE: Axial computed tomography images of the head/brain without intravenous contrast. CTDI is 38.55 mGy and DLP is 1307.22 mGy-cm. Automated exposure control was utilized for the study. A dose lowering technique was utilized adhering to the principles of ALARA. COMPARISON: No relevant prior studies available. FINDINGS: Brain: Age-related parenchymal volume loss. Scattered white matter hypodensities, most likely mild chronic small vessel ischemic change. Tilley-white matter differentiation maintained. No parenchymal edema. No acute intracranial hemorrhage or abnormal extra-axial collection. No mass effect of midline shift. Ventricles: No hydrocephalus. Bones/joints: No acute fracture. Soft tissues: Lateral right frontal scalp swelling. Vasculature: Intracranial atherosclerosis. Sinuses: Unremarkable as visualized. Mastoid air cells: No significant mastoid effusion. IMPRESSION: 1. Lateral right frontal scalp swelling. 2. No acute intracranial process. Electronically signed by: Roni Holliday M.D. 08/23/25 22:42 PM Chest CTA 08/24/25 01:14 CT ANGIOGRAM OF THE CHEST CLINICAL HISTORY: Chest pain. Evaluate for pulmonary embolus. COMPARISON STUDY: Chest radiograph January 23, 2019. TECHNIQUE: Following the IV administration of 112 cc of Optiray 320, CT angiogram of the chest was performed from the upper abdomen to the thoracic inlet utilizing the pulmonary embolus protocol. Images are reviewed in the axial, sagittal, and coronal planes. 3-D MIPS images are created and assessed. IV contrast was administered without complication. A dose lowering technique was utilized adhering to the principles of ALARA. CT DOSE: 597.6 mGy.cm FINDINGS: No pulmonary emboli are identified. There is no thoracic aortic dissection. Size of the heart is normal. There is no pericardial effusion. No thoracic lymphadenopathy is present. There is no pneumothorax or pleural effusion. Lungs are clear. No consolidation is present. There are no pulmonary nodules. There are several healing anterior bilateral rib fractures. Visualized portions of the upper abdomen demonstrate severe hepatic steatosis. IMPRESSION: 1. No pulmonary emboli identified. 2. No acute intrathoracic findings. 3. Severe hepatic steatosis. ACT 112: Negative or not required by law. Electronically signed by: Maximilian Hampton M.D. 08/24/2025 9:33 AM (5) CHI (closed head injury) Encounter type: initial encounter Qualified Code(s): S09.90XA - Unspecified injury of head, initial encounter
[2025-08-25] MEDS: REMOVE NICODERM PATCH SCH (20:08)
[2025-08-25] MEDS: KETOROLAC TROMETHAMINE 15 MG/ML VIAL IV ONE (22:37)
[2025-08-26 06:34] LABS: Hematocrit (blood only) 38.4 % (42.0-52.0); Hemoglobin 13.8 g/dL (14.0-18.0); Mean Corpuscular Hemoglobin 33.2 pg (25.0-34.0); Mean Corpuscular Volume 92.3 fL (80.0-100.0); Platelet Count 82 K/uL (130-400); RDW Standard Deviation 40.3 fL (36.4-46.3); Red Blood Count 4.16 M/uL (4.70-6.10); White Blood Count 3.45 K/ul (4.8-10.8)
[2025-08-26 06:53] LABS: Alanine Aminotransferase 28.0 U/L (7-52); Albumin Globulin Ratio 1.8 (0.9-2); Albumin Level 4.3 gm/dl (3.4-5.0); Alkaline Phosphatase 52.0 U/L (34-104); Anion Gap 10.0 (3-11); Bilirubin,Total 0.9 mg/dl (0.2-1.0); Blood Urea Nitrogen 7.0 mg/dl (6-23); Calcium 9.9 mg/dl (8.6-10.3); Carbon Dioxide 25.0 mmol/L (21-32); Chloride 104.0 mmol/L (98-107); Creatinine Clr Calc Pharmacy 197.2 ml/min; Globulin 2.4 gm/dl (2.5-4.0); Glucose 90.0 mg/dl (70-99(Fasting)); Potassium 3.7 mmol/L (3.5-5.1); Sodium 139.0 mmol/L (136-145); Total Protein 6.7 gm/dl (6.0-8.3)
[2025-08-26] MEDS ORDERED: NON-FORMULARY MEDICATION (Riboflavin (Vitamin B2) [Vitamin B-2] 100 mg Tablet) PO SCH (09:00)
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
[2025-08-26] MEDS: NALTREXONE HCL 50 MG TAB PO SCH (09:32)
== END 2025-08-26 11:50 | disposition home or self-care (01) | DRG 897 ==
LOC: ED 20:44 → 2E 08-24 00:29 → 3E 08-25 21:52